=== PATIENT | female | born 1940 | race Caucasian/White ===

== ENCOUNTER 2021-02-08 18:40 | Inpatient (IN) | payer MEDICARE, BC ==
[~2021-02-08] VITALS: Ht 170.2 cm; Wt 81.0 kg
--- NOTE | ~2021-02-08 | OP ---
PATIENT NAME: KANDICE ALBRECHT MEDICAL RECORD: [id number] :40 LOCATION:[id number] ADMISSION DATE:02/08/21 SURGEON: EDGARDO HAN MD DATE OF OPERATION: 02/11/2021 PREOPERATIVE DIAGNOSIS: Lower gastrointestinal bleeding. POSTOPERATIVE DIAGNOSES: 1. Lower gastrointestinal bleeding very likely secondary to diverticular disease. 2. Moderate left-sided diverticulosis. 3. Tortuous colon. 4. 4 sessile polyps ranging in size from 5 mm-1.2cm. PROCEDURE PERFORMED: 1. Total colonoscopy to the cecum. 2. Hot biopsy forceps polypectomies 4. SURGEON: Edgardo Han MD HOSPITAL INSURANCE REPRESENTATIVE: None. BLOOD LOSS: Minimal. ANESTHESIA: IV sedation. COMPLICATIONS: None. The risks, possible complications, and alternatives of the procedure were explained to the patient. She elected to proceed. ENDOSCOPIC COURSE: The patient was conveyed to the endoscopy suite electively on 02/11/2021. IV sedation was induced by the anesthesia staff. The patient was placed in the Solis position. A digital rectal examination was performed. A colonoscope was inserted through the anus. It was easily advanced to the cecum. The prep was adequate. Upon withdrawal, I irrigated and aspirated extensively. A combination of normal imaging and narrow band imaging were utilized. I dragged the folds. The pullback was greater than 18-minute pullback. Four hot biopsy forceps polypectomies were performed. A retroflex view was obtained of the rectum. I then unretroflexed the scope and removed it under direct vision. Plan to see the patient in my office in 2 to 3 weeks to review the results of the polypectomies. TRANSINT:[id number] Voice Confirmation ID: [id number] DOCUMENT ID: [id number] EDGARDO HAN MD CC: VERO REYES [id number] DICTATION DATE: 02/11/21 141 CHEMISTRY TUTOR: 02/11/211942 ADM IN [facility] [place] [address] [place] [address]
[2021-02-08] MEDS ORDERED: ANORO ELLIPTA1 EACH INH (18:51)
[2021-02-08] MEDS ORDERED: ELIQUIS5 MG PO (18:53)
[2021-02-08] MEDS ORDERED: LANTUS INS100 UNITS/ SC (18:53)
[2021-02-08] MEDS ORDERED: K-TAB10 MEQ PO (18:54)
[2021-02-08] MEDS ORDERED: FUROSEMIDE20 MG PO (18:54)
[2021-02-08 19:26] LABS: HEMATOCRIT 23.4 % (36.0-48.0)
[2021-02-08 19:30] LABS: HEMOGLOBIN 6.6 g/dL (12-16)
[2021-02-08 20:33] LABS: EOSINOPHILS 3.7 % (0-7); HEMATOCRIT 23.7 % (36.0-48.0); IMMATURE GRANULOCYTES 0.1 % (0-5); LYMPHOCYTE ABS# 1.74 10x3/uL (1.18-3.74); LYMPHOCYTES 24.9 % (15-50); MCH 21.9 pg (26.0-34.0); MCHC 28.3 g/dL (31.0-37.0); MCV 77.5 fL (80.0-100.0); MEAN PLATELET VOLUME 10.4 fL (7.4-10.4); MONOCYTES 7.3 % (2-11); NEUTROPHIL ABS# 4.39 10x3/uL (1.56-6.13); PLATELET COUNT 216 10x3/uL (130-400); RBC 3.06 10x6/uL (4.00-5.40); RDW 17.2 % (11.5-14.5)
[2021-02-08 20:39] LABS: ANION GAP 12.3 mmol/L (8-16); CALCIUM 8.4 mg/dL (8.5-10.1); CARBON DIOXIDE 29.6 mmol/L (21.0-32.0); CREATININE - SERUM 1.1 mg/dL (0.6-1.3); POTASSIUM - SERUM 3.9 mmol/L (3.5-5.1)
[2021-02-08 20:41] LABS: HEMOGLOBIN 6.7 g/dL (12-16)
[2021-02-08 20:45] LABS: ALBUMIN 2.8 g/dL (3.4-5.0); BILIRUBIN - TOTAL 1.3 mg/dL (0.2-1.3); MAGNESIUM - SERUM 2.3 mg/dL (1.8-2.4); PROTEIN - SERUM 5.7 g/dL (6.4-8.2)
[2021-02-08 22:45] VITALS: BP 138/54; BMI 28.2
[2021-02-08 23:00] VITALS: BP 138/54
[2021-02-08 23:30] VITALS: BP 159/65
[2021-02-09] VITALS (21 sets, daily range): BP systolic 132–182; BP diastolic 38–99
--- NOTE | 2021-02-09 02:25 | NUR ---
IV ALARMING, UPON ENTRANCE INTO PT ROOM, PT HAD ACCIDENTALLY PULLED BOTH IV'S OUT, STATES SHE GOT THEM TANGLED UP. COMPLETE LINEN CHANGE DONE, 2 NEW 20G PIV'S INSERTED X 1 STICK EACH TO LT FA.
[2021-02-09 04:07] LABS: HEMATOCRIT 28.2 % (36.0-48.0)
[2021-02-09 04:10] LABS: HEMOGLOBIN 8.4 g/dL (12-16)
[2021-02-09 04:21] LABS: ALBUMIN 2.7 g/dL (3.4-5.0); ANION GAP 11.7 mmol/L (8-16); BILIRUBIN - TOTAL 1.36 mg/dL (0.2-1.3); CALCIUM 8.3 mg/dL (8.5-10.1); CARBON DIOXIDE 25.9 mmol/L (21.0-32.0); MAGNESIUM - SERUM 2.2 mg/dL (1.8-2.4); PHOSPHOROUS 3.4 mg/dL (2.5-4.9); POTASSIUM - SERUM 3.6 mmol/L (3.5-5.1)
[2021-02-09 05:12] LABS: BASOPHILS 0.8 % (0-2); EOSINOPHILS 3.1 % (0-7); HEMATOCRIT 28.3 % (36.0-48.0); HEMOGLOBIN 8.4 g/dL (12-16); IMMATURE GRANULOCYTES 0.1 % (0-5); LYMPHOCYTE ABS# 1.75 10x3/uL (1.18-3.74); LYMPHOCYTES 23.3 % (15-50); MCH 23.3 pg (26.0-34.0); MCHC 29.7 g/dL (31.0-37.0); MCV 78.6 fL (80.0-100.0); MEAN PLATELET VOLUME 10.5 fL (7.4-10.4); MONOCYTES 6.7 % (2-11); NEUTROPHIL ABS# 4.96 10x3/uL (1.56-6.13); PLATELET COUNT 213 10x3/uL (130-400); RDW 16.8 % (11.5-14.5); WBC 7.5 10x3/uL (4.8-10.8)
--- NOTE | 2021-02-09 07:57 | NUR ---
DAILY ASSESSMENT COMPLETE. PATIENT CONFUSED TO SITUATION AND TIME. DOES NOT REMEMBER BEING SEEN BY DOCTORS OR PLAN OF CARE. REORIENTED TO SITUATION. NO NEEDS. CHRISTINE DRAINING TO GRAVITY. PROTONIX DRIP AND NS INFUSING TO IV SITES TO LEFT UPPER EXTREMITY.
--- NOTE | 2021-02-09 09:46 | NUR ---
PATIENT ASSISTED TO POSITION OF COMFORT, REPOSITIONED TO SUPINE FROM RIGHT SIDE LYING. CALL LIGHT IN REACH, RAILS UP FOR SAFETY, SAFETY CHECKS PERFORMED. BED ALARM ON, TUBING HIDDEN/COVERED. CHRISTINE EMPTIED OF 350ML YELLOW URINE. REORIENTED TO PERSON TIME PLACE SITUATION, CARE PLAN EXPLAINED. TV TURNED OFF AND BLANKETS APPLIED PER REQUEST OF PATIENT. NAD. VS STABLE.
--- NOTE | 2021-02-09 09:58 | NUR ---
SON GIVEN STATUS UPDATE ON PATIENT AND NOTIFIED OF VISITATION POLICY.
--- NOTE | 2021-02-09 10:55 | NUR ---
PATIENT ROUNDING AND REASSESSMENT PERFORMED NO CHANGES. . PROTONIX DRIP AND NS IVF INFUSING TO PERIPHERAL IV. HOSPITALIST AT BEDSIDE.
--- NOTE | 2021-02-09 11:50 | NUR ---
SON AT BEDSIDE TO VISIT PATIENT. PROVIDED INSURANCE CARDS AND ID, COPIES MADE AND PLACED IN CHART.
--- NOTE | 2021-02-09 12:23 | NUR ---
PATIENT BROUGHT LUNCH TRAY AT 1214, FINISHED 1222. ATE 75% OF TRAY, 240ML LIQUID PO INTAKE.
--- NOTE | 2021-02-09 13:43 | NUR ---
NURSING ROUND PERFORMED. NAD. AWAKE, ALERT, ORIENTED TO PLACE AND SITUATION. DENIES NEEDS. MONITORING IN LINE OF SIGHT.
--- NOTE | 2021-02-09 15:04 | NUR ---
ROUND PERFORMED WITH DR HAN, OPTIONS DISCUSSED WITH PATIENT, PLAN OF CARE EXPLAINED. VERBAL ORDER TO CONTINUE CLEAR LIQUID DIET, AND TO PLAN FOR BOWEL PREP AND COLONOSCOPY WEDNESDAY. DR HAN STATES THAT PATIENT IS CLEARED TO GO TO THE MED SURG FLOOR FROM HIS STAND POINT.
--- NOTE | 2021-02-09 15:11 | NUR ---
DR VERO REYES CALLED AND NOTIFIED OF DR HAN PLAN OF CARE, TELEPHONE ORDER TO MOVE TO MED SURG RECEIVED. MANAGER BUSINESS PLANNING JCARLOS IRBY NOTIFIED.
--- NOTE | 2021-02-09 15:47 | NUR ---
SON, SAM ROCHA, NOTIFIED OF PATIENT STATUS, PLAN OF CARE, AND ORDERS TO MOVE TO MED SURG. VERBALIZED THANKS AND UNDERSTANDING.
--- NOTE | 2021-02-09 16:05 | NUR ---
ATTEMPTED TO CALL REPORT AT THIS TIME, REFUSED, STATES THAT ROOM IS NOT CLEAN.
--- NOTE | 2021-02-09 16:37 | NUR ---
REPORT CALLED TO MAHAMED LUTHER. ACCEPTED TO ROOM 2106.
--- NOTE | 2021-02-09 17:02 | NUR ---
PATIENT TRANSFERRED TO 2106, ALL BELONGINGS ACCOUNTED FOR BY PATIENT AND SENT WITH HER TO MED SURG UNIT. PATIENT STABLE, NO COMPLAINTS OR PAIN. FAMILY NOTIFIED OF TRANSFER.
--- NOTE | 2021-02-09 17:21 | NUR ---
ARRIVES TO FLOOR FROM ICU, IV INFUSING PER LFA, CONFUSED TO DATE, TIME , DRINKING MAG CITRATE,CONT TO MONITOR, BED ALARM IN PLACE
--- NOTE | 2021-02-09 21:34 | NUR ---
INITIAL ROUNDS COMPLETED AT 1915 HRS. ASSISTED PT TO BSC. LARGE AMOUNT OF BROWN DIARRHEA NOTED. ASSISTED BACK TO BED. PT UP TO BSC AT 1999 HRS. LARGE AMOUNT OF BROWN DIARRHEA NOTED. ASSISTED BACK TO BED. GAIT SLIGHTLY UNSTEADY. ASSESSMENT COMPLETED AT 2004 HRS. VSS. SR PER CMHR 98. PT ALERT, ORIENTED TO PERSON ONLY. SCAB NOTED TO TOP OF HEAD. LUNGS ESSENTIALLY CTA. HEART TONES S1 S2. ABD SOFT WTIH ATIVE BS NOTED. PALPABLE PERIPHERAL PULSES. IV X2 TO LFA WRAPPED WITH KERLIX. NS AT 75CC/HR INFUSING WITHOUT DIFFICULTY. SCD'S IN USE. REMOVED AND SKIN INSPECTED. NO BREAKDOWN NOTED. CHRISTINE DRAINING YELLOW URINE. ASSISTED PT TO BSC AT 2044 HRS. MODERTE AMOUNT OF BROWN DIARRHEA NOTED. ASSISTED BACK TO BED. PT CURRENTLY RESTING WITH EYES CLOSED. RESP EVEN AND REGULAR. SRUP X2, CALL LIGHT WITHIN REACH AND BED ALARM ON.
--- NOTE | 2021-02-09 23:52 | NUR ---
REPORT GIVEN TO ARNOL ASENCIO. PT TO BE TRANSFERRED TO RM 2228.
--- NOTE | 2021-02-10 01:05 | NUR ---
I have reviewed this patient and I concur with the Shift Assessment completed by the Licensed Practical Nurse today this shift.
[2021-02-10 07:52] LABS: ALBUMIN 2.7 g/dL (3.4-5.0); ANION GAP 8.5 mmol/L (8-16); BILIRUBIN - TOTAL 0.94 mg/dL (0.2-1.3); CALCIUM 7.8 mg/dL (8.5-10.1); CARBON DIOXIDE 27.3 mmol/L (21.0-32.0); CREATININE - SERUM 0.9 mg/dL (0.6-1.3); MAGNESIUM - SERUM 2.4 mg/dL (1.8-2.4); POTASSIUM - SERUM 3.8 mmol/L (3.5-5.1); PROTEIN - SERUM 5.6 g/dL (6.4-8.2)
[2021-02-10 08:04] VITALS: BP 166/64
[2021-02-10 08:09] LABS: BASOPHILS 0.6 % (0-2); EOSINOPHILS 3.2 % (0-7); HEMATOCRIT 29.9 % (36.0-48.0); HEMOGLOBIN 8.7 g/dL (12-16); IMMATURE GRANULOCYTES 0.3 % (0-5); LYMPHOCYTE ABS# 1.29 10x3/uL (1.18-3.74); MCH 23.2 pg (26.0-34.0); MCHC 29.1 g/dL (31.0-37.0); MCV 79.7 fL (80.0-100.0); MEAN PLATELET VOLUME 10.6 fL (7.4-10.4); NEUTROPHIL ABS# 5.16 10x3/uL (1.56-6.13); NEUTROPHILS 71.9 % (40-80); PLATELET COUNT 227 10x3/uL (130-400); RBC 3.75 10x6/uL (4.00-5.40); RDW 17.1 % (11.5-14.5); WBC 7.2 10x3/uL (4.8-10.8)
--- NOTE | 2021-02-10 10:07 | NUR ---
PATIENT RESTING QUIETLY AT THIS TIME, NO DISTRESS NOTED. IV SITE DRY AND INTACT WITH NO S/S OF INFILTRATION. MAINTENANCE FLUIDS RUNNING. PATIENT AROUSES EASILY WITH VERBAL STIMULI. RESPIRATIONS EVEN AND UNLABORED. CHRISTINE CATH IN PLACE DRAINING CLEAR, YELLOW URINE. CALL VARGAS IN REACH, SIDE RAILS UP X 2, BED IN LOW POSITION.
[2021-02-10] MEDS ORDERED: K-DUR20 MEQ PO (10:41)
[2021-02-10] MEDS ORDERED: METOPROLOL TART50 MG PO (10:42)
[2021-02-10] MEDS ORDERED: COZAAR25 MG PO (10:42)
[2021-02-10] MEDS ORDERED: LIPITOR40 MG PO (10:43)
[2021-02-10] MEDS ORDERED: DITROPAN XL 1010 MG PO (10:43)
[2021-02-10 13:59] VITALS: Ht 170.2 cm; Wt 81.0 kg
[2021-02-10 15:25] VITALS: BP 176/64
[2021-02-10 18:35] VITALS: BP 197/69
[2021-02-10 20:00] VITALS: BP 173/67
--- NOTE | 2021-02-10 20:30 | NUR ---
PT AWARE OF UPCOMING COLONOSCOPY. ORIENTED TO SELF, BUT STATSE SHE'S IN A BASEMENT AWAITING SURGERY. REORIENTED TO PLACE, TIME, SITUATION. VERBAL CONSENT RECEIVED FROM DAUGHTER, GARRETT. INFORMED PT ON BLADDER TRAINING. TUBING KINKED. PT VERBALIZED UNDERSTANDING OF USING CALL LIGHT WHEN SHE FEELS FULL, CTM.
[2021-02-11] VITALS: BP 139/82
--- NOTE | 2021-02-11 02:15 | NUR ---
PT REPORTS FEELING BLADDER FULLNESS. 10ML ASPIRATED FROM Chet RODRIGUEZ W/O COMPLAINTS. CTM.
[2021-02-11 04:00] VITALS: BP 161/70
[2021-02-11 05:28] LABS: BASOPHILS 0.7 % (0-2); EOSINOPHILS 3.8 % (0-7); HEMATOCRIT 30.4 % (36.0-48.0); HEMOGLOBIN 8.8 g/dL (12-16); IMMATURE GRANULOCYTES 0.1 % (0-5); LYMPHOCYTE ABS# 1.09 10x3/uL (1.18-3.74); LYMPHOCYTES 15.8 % (15-50); MCH 23.1 pg (26.0-34.0); MCHC 28.9 g/dL (31.0-37.0); MCV 79.8 fL (80.0-100.0); MEAN PLATELET VOLUME 10.8 fL (7.4-10.4); MONOCYTES 6.7 % (2-11); NEUTROPHIL ABS# 5.02 10x3/uL (1.56-6.13); NEUTROPHILS 72.9 % (40-80); PLATELET COUNT 219 10x3/uL (130-400); RBC 3.81 10x6/uL (4.00-5.40); RDW 17.1 % (11.5-14.5); WBC 6.9 10x3/uL (4.8-10.8)
--- NOTE | 2021-02-11 05:34 | NUR ---
I have reviewed this patient and I concur with the Shift Assessment completed by the Licensed Practical Nurse today this shift.
[2021-02-11 05:45] LABS: ALBUMIN 2.5 g/dL (3.4-5.0); ALKALINE PHOSPHATASE 61 U/L (30-120); BILIRUBIN - TOTAL 0.71 mg/dL (0.2-1.3); CALCIUM 7.5 mg/dL (8.5-10.1); CARBON DIOXIDE 24.6 mmol/L (21.0-32.0); CHLORIDE - SERUM 110 mmol/L (98-107); CREATININE - SERUM 0.7 mg/dL (0.6-1.3); GLUCOSE 152 mg/dL (74-106); MAGNESIUM - SERUM 2.4 mg/dL (1.8-2.4); PHOSPHOROUS 2.6 mg/dL (2.5-4.9); POTASSIUM - SERUM 3.4 mmol/L (3.5-5.1); SODIUM 142 mmol/L (136-145); eGFR NON AFRICAN AMERICAN 85 mL/min (90-120)
[2021-02-11 05:56] LABS: ALT (SGPT) 12 U/L (10-68); CALC OSMOLALITY 283 mosm/kg (275-300); UREA NITROGEN 6 mg/dL (7-18)
--- NOTE | 2021-02-11 06:00 | NUR ---
PT REPORTS VOIDING IN TOILET, CTM.
[2021-02-11 08:50] VITALS: BP 144/65
--- NOTE | 2021-02-11 11:43 | NUR ---
PT LAYING IN BED RESTING, NO SIGNS OF DISTRESS, PT IS SLIGHTLY CONFUSED AND NEEDS FREQUENT REMINDERS OF WHEN AND WHERE SHE IS, PT DOES FORGET TO USE CALL LIGHT WHEN GETTING UP
[2021-02-11 13:10] VITALS: BP 157/80
--- NOTE | 2021-02-11 14:16 | NUR ---
PACU CALLED TO REPORT THAT FINDINGS FOR PT WERE SEVERE DIVERTICULITIS AND 4 POLYPS THAT WERE REMOVED, PT IS BACK TO BASELINE FOR MENTAL STATUS, NO O2 NEEDED, PT TO GO TO CT BEFORE COMING BACK TO FLOOR
[2021-02-11 17:09] VITALS: BP 169/69
[2021-02-11 20:00] VITALS: BP 139/73
[2021-02-12] VITALS: BP 120/69
--- NOTE | 2021-02-12 02:17 | NUR ---
I have reviewed this patient and I concur with the Shift Assessment completed by the Licensed Practical Nurse today this shift.
[2021-02-12 04:00] VITALS: BP 157/70
[2021-02-12 05:05] LABS: EOSINOPHILS 3.8 % (0-7); HEMOGLOBIN 8.7 g/dL (12-16); IMMATURE GRANULOCYTES 0.2 % (0-5); LYMPHOCYTE ABS# 0.96 10x3/uL (1.18-3.74); LYMPHOCYTES 16.4 % (15-50); MCH 23.1 pg (26.0-34.0); MCV 79.8 fL (80.0-100.0); MEAN PLATELET VOLUME 10.2 fL (7.4-10.4); MONOCYTES 6.3 % (2-11); NEUTROPHIL ABS# 4.23 10x3/uL (1.56-6.13); NEUTROPHILS 72.3 % (40-80); PLATELET COUNT 207 10x3/uL (130-400); RBC 3.76 10x6/uL (4.00-5.40); RDW 17.2 % (11.5-14.5); WBC 5.9 10x3/uL (4.8-10.8)
[2021-02-12 05:13] LABS: ALBUMIN 2.6 g/dL (3.4-5.0); ANION GAP 11.3 mmol/L (8-16); BILIRUBIN - TOTAL 0.79 mg/dL (0.2-1.3); CALCIUM 7.6 mg/dL (8.5-10.1); CARBON DIOXIDE 24.4 mmol/L (21.0-32.0); CREATININE - SERUM 0.8 mg/dL (0.6-1.3); MAGNESIUM - SERUM 2.2 mg/dL (1.8-2.4); PHOSPHOROUS 2.3 mg/dL (2.5-4.9); POTASSIUM - SERUM 3.7 mmol/L (3.5-5.1); PROTEIN - SERUM 6.1 g/dL (6.4-8.2)
[2021-02-12 08:56] VITALS: BP 184/69
[2021-02-12 12:59] VITALS: BP 140/83
--- NOTE | 2021-02-12 14:07 | NUR ---
Nutrition follow-up: Pt diagnosed with severe divertiuclar disease post-colonoscopy Diet remains clear liquids Labs reviewed Wt: 178# Pt not meeting nutritional needs at this time Recommend starting ProcalAmine PPN @ 75 ml/hr if diet unable to advance past clears within 24 hours RDN follow-up: 02/14/21
--- NOTE | 2021-02-12 14:19 | MORECARE ---
CASE MANAGEMENT DISCHARGE SUMMARY PATIENT: KANDICE ALBRECHT UNIT: [id number] ADM DATE: 02/08/21 AGE: 80 : 40 SEX: F ROOM/BED: D.2228 AUTHOR: INDER,DOC PHYSICIAN: REFERRING PHYSICIAN: VERO REYES MD DATE OF SERVICE: 02/12/21 Case Management Discharge Planning Summary COMMENTS ENTERED DATE: 02/12/21 14:05 CT COMMENT TYPE: Discharge Planning REVIEWER: Theresa Mustafa CM SPOKE TO PATIENT'S DAUGHTER AND SON IN [place] TODAY VIA PHONE. THEY STATE IT IS NOT SAFE FOR HER TO BE AT HOME AND NEEDS REHAB. THEY WOULD LIKE [facility] IN [place] FOR REHAB. PHONE NUMBER [phone] FAX [phone]. CONTACTED FACILITY AND FAXING THEM A FACE SHEET AND H&P, I WILL FAX THERAPY NOTES WHEN AVAILABLE ON CHART. PATIENT'S DAUGHTER GARRETT ROCHA STATES SHE IS HER POA AND HER PHONE NUMBER IS [phone]. CM TO FOLLOW AND ASSIST NEEDED. DCP REVIEW SUMMARY ANTICIPATED D/C DATE: EXPECTED LOS : CASE STATUS: DCP Initiated INITIAL REVIEW: 02/08/2021 INITIAL REVIEWER: Theresa Mustafa FINAL DISCHARGE DISPOSITION: : FINAL REVIEWER: FINAL REVIEW DATE: DCP Focus Questions & Answers QUESTION: ANSWER : PATIENT: KANDICE ALBRECHT ENCOUNTER: [id number] MEDICAL RECORD#: [id number] ADMISSION DATE: 02/08/2021 DISCHARGE DATE: ATTENDING MD: VERO DAMON : AGE: 80 MARITAL STATUS: D DC PLAN ID: [id number] FACILITY: [facility] PRINTED ON: 02/12/21 14:19 CT All edits/amendments must be made on the electronic document DICTATION DATE: 02/12/211418 ROCK CRUSHER: WALESKA 02/12/211418 RPT#: [id number] DC DATE: STATUS: ADM IN [facility] [address] [place] [address] END OF REPORT
--- NOTE | 2021-02-12 17:36 | NUR ---
OT NOTE: PT COMPLETED BED MOB TASKS WITH SPV. PT COMPLETED SIMPE HYGIENE TASKS WITH SETUP. [phone] THANK YOU,DORA POST
[2021-02-12 18:03] VITALS: BP 180/81
[2021-02-12 20:00] VITALS: BP 141/50
--- NOTE | 2021-02-12 22:56 | NUR ---
PT SITTING UP IN THE BED. NO COMPLAINTS OF PAIN NOR DISTRESS AT THIS TIME. PT STATES SHE IS FEELING GOOD. ABLE TO MAKE WANTS AND NEEDS KNOWN. ALERT AND ORIENTED. BED IN LOWEST POSITION WITH CALL LIGHT IN REACH.
[2021-02-13 04:00] VITALS: BP 110/59
[2021-02-13 06:24] LABS: BASOPHILS 0.9 % (0-2); EOSINOPHILS 3.4 % (0-7); HEMATOCRIT 32.2 % (36.0-48.0); HEMOGLOBIN 9.2 g/dL (12-16); IMMATURE GRANULOCYTES 0.2 % (0-5); LYMPHOCYTE ABS# 1.29 10x3/uL (1.18-3.74); MCH 23.1 pg (26.0-34.0); MCHC 28.6 g/dL (31.0-37.0); MCV 80.9 fL (80.0-100.0); MEAN PLATELET VOLUME 10.9 fL (7.4-10.4); NEUTROPHIL ABS# 4.55 10x3/uL (1.56-6.13); NEUTROPHILS 70.5 % (40-80); PLATELET COUNT 227 10x3/uL (130-400); RBC 3.98 10x6/uL (4.00-5.40); RDW 17.6 % (11.5-14.5); WBC 6.5 10x3/uL (4.8-10.8)
[2021-02-13 06:36] LABS: ALBUMIN 2.8 g/dL (3.4-5.0); ANION GAP 12.3 mmol/L (8-16); BILIRUBIN - TOTAL 0.53 mg/dL (0.2-1.3); CALCIUM 7.9 mg/dL (8.5-10.1); CARBON DIOXIDE 25.3 mmol/L (21.0-32.0); CREATININE - SERUM 0.8 mg/dL (0.6-1.3); MAGNESIUM - SERUM 2.3 mg/dL (1.8-2.4); PHOSPHOROUS 2.6 mg/dL (2.5-4.9); POTASSIUM - SERUM 3.6 mmol/L (3.5-5.1); PROTEIN - SERUM 6.5 g/dL (6.4-8.2)
--- NOTE | 2021-02-13 07:43 | NUR ---
PT IS RESTING IN BED WITH EYES OPEN. RESPIRATIONS ARE EVEN AND UNLABORED. PT IS EASILY AROUSED WITH VERBAL STIMULATION. PT DENIES PRESENCE OF PAIN/N/V AT THIS TIME. PT REPORTS A BM "LAST NIGHT" AND DENIES PRESENCE OF BLOOD IN STOOL. PT STATES "I LOOKED REAL CLOSE TO MAKE SURE". PIV X 2 TO LEFT FA AND (1) INFUSING WITHOUT DIFFICULTY/COMPROMISE. PIV (2) IS SL AND FLUSHES WITHOUT DIFFICULTY/COMPROMISE. BS ACTIVE X 4. PT IS AAO X 4. FALL PRECAUTIONS IN PLACE. INCENTIVE SPIROMETER AT BEDSIDE AND ENCOURAGED. PT DENIES PRESENCE OF DYSPNEA/SOB AT THIS TIME. PT DENIES PRESENCE OF NUMBNESS/TINGLING TO BUE AND BLE AT THIS TIME. BED IS IN THE LOWEST POSITION. CALL LIGHT AND BEDSIDE TABLE ARE WITHIN REACH. SIDE RAILS X 2. PT DENIES FURTHER NEEDS. WILL CONT TO MONITOR.
[2021-02-13 09:11] VITALS: BP 188/71
--- NOTE | 2021-02-13 10:06 | NUR ---
PIV TO LEFT FA WITH REDNESS AND TENDER. PIV REMOVED WITH CATHETER TIP INTACT. DRESSING APPLIED. PIV TO LEFT FA (2) INFUSINGER PER ORDER WITHOUT DIFFICULTY/COMPROMISE. FALL PERCAUTIOSN IN PLACE. BED IS N THE LOWEST POSITION. CALL LIGHT AND BEDSIDE TABLE ARE WITHIN REACH. SIDE RAILS X 2. INCENTIVE SPIROMETER AT BEDSIDE AND ENCOURAGED. PT DENIES FURTHER NEEDS. WILL CONT TO MONITOR.M
[2021-02-13 12:58] VITALS: BP 170/80
--- NOTE | 2021-02-13 14:30 | NUR ---
TELEPHONE ORDERS RECD FROM NIYAH BAHENA APRN TO ADVANCE DIET TO REGULAR DIET. WILL PLACE ORDER.
--- NOTE | 2021-02-13 14:31 | NUR ---
WALKED 250 FEET USED WALKER AND GT BELT MIN ASSIT
[2021-02-13] MEDS ORDERED: PROTONIX40 MG PO (16:15)
[2021-02-13 16:56] VITALS: BP 180/72
--- NOTE | 2021-02-13 18:14 | NUR ---
OT NOTE: PT COMPLETED SUPINE TO SIT WITH CGA. PT COMPLETED ADL MOB WITH CGA TO TOILET. PT COMPLETED HYGIENE TASKS WITH MIN A. PT COMPLETED SIT TO STAND WITH CGA. PT COMPLETED HAND HYGIENE WITH SETUP. PT COMPLETED HAIR GROOMING WITH SETUP. [phone] PARI LOPEZ COTA
--- NOTE | 2021-02-13 20:00 | NUR ---
CALLED TO ROOM PT IS CONFUSED STATES WHY HAVE THEY MOVED ME TO ANOTHER HOSPITAL, REASURES THIS WAS SAME PLACE, CALLED DAUGHTER FOR PT TO SPEAK WITH MUCH CALMER AFTER SPEAKING WITH DAUGHTER, SEE SHIFT ASSESSMENT, CALL LIGHT IN REACH, FALL PRECAUTIONS IN PLACE
[2021-02-13 21:36] VITALS: BP 144/52
[2021-02-14 04:00] VITALS: BP 173/58
[2021-02-14 06:57] LABS: BASOPHILS 0.9 % (0-2); EOSINOPHILS 5.2 % (0-7); HEMOGLOBIN 8.9 g/dL (12-16); IMMATURE GRANULOCYTES 0.2 % (0-5); LYMPHOCYTE ABS# 1.29 10x3/uL (1.18-3.74); LYMPHOCYTES 23.9 % (15-50); MCH 23.1 pg (26.0-34.0); MCHC 28.7 g/dL (31.0-37.0); MCV 80.5 fL (80.0-100.0); MEAN PLATELET VOLUME 10.9 fL (7.4-10.4); MONOCYTES 6.9 % (2-11); NEUTROPHILS 62.9 % (40-80); PLATELET COUNT 219 10x3/uL (130-400); RBC 3.85 10x6/uL (4.00-5.40); RDW 17.6 % (11.5-14.5); WBC 5.4 10x3/uL (4.8-10.8)
[2021-02-14 06:59] LABS: ALBUMIN 2.7 g/dL (3.4-5.0); ANION GAP 10.4 mmol/L (8-16); BILIRUBIN - TOTAL 0.61 mg/dL (0.2-1.3); CALCIUM 7.9 mg/dL (8.5-10.1); CREATININE - SERUM 0.8 mg/dL (0.6-1.3); POTASSIUM - SERUM 3.4 mmol/L (3.5-5.1); PROTEIN - SERUM 6.2 g/dL (6.4-8.2)
[2021-02-14 08:38] VITALS: BP 165/68
--- NOTE | 2021-02-14 08:45 | NUR ---
PATIENT IN BED WITH IV INTACT. NO COMPLAINTS OR SIGNS OF DISTRESS. ASSISTED TO BR AND BACK TO BED. CALL LIGHT WITHIN REACH.
[2021-02-14 12:34] VITALS: BP 129/57
--- NOTE | 2021-02-14 13:30 | NUR ---
PATIENT IV REMOVED DUE TO LEAKING WITH CATH TIP INTACT. NEW IV NOT NEEDED. PATIENT BEING DC'D. CALL LIGHT WITHIN REACH.
--- NOTE | 2021-02-14 15:03 | NUR ---
PATIENT WALKED 250 FEET WITH CGA.
--- NOTE | 2021-02-14 15:30 | NUR ---
PATIENT SITTING ON BED WAITING FOR DC. CALL LIGHT WITHIN REACH.
--- NOTE | 2021-02-14 15:45 | NUR ---
OT NOTE: PT COMPLETED TOILETING TASKS WITH SBA-CGA. PT COMPLETED CHRISTIN SOCKS WITH SETUP. PT COMPLETED ADL MOB WITH SUPERVISOR IN CIRCUIT TESTING-SBA. PT DONNED GOWN WITH SETUP. PT COMPLETED HAND HYGIENE AT SINK WITH SBA. [phone] THANK YOU,DORA POST
--- NOTE | 2021-02-14 16:00 | NUR ---
TRIED TO CALL PATIENTS DAUGHTER GARRETT TO LET HER KNOW PATIENT IS BEING DC'D TO [facility] AND PATIENT WANTED TO SPEAK TO HER. NO ANSWER. LEFT VM.
--- NOTE | 2021-02-14 17:00 | NUR ---
[employer] CALLED BACK AND STATED THAT PATIENT WAS GOING TO HAVE TO PAY FOR RIDE WITH [employer]. PADMINI ZARATE SPOKE WITH THEM. STATED THAT SELINA WAS PAYING FOR RIDE. STATED THAT [employer] WOULD BE HERE TO GET HER. PATIENT WAITING AT THIS TIME.
--- NOTE | 2021-02-14 17:13 | NUR ---
Nutrition Follow-up: Per nurses notes, pt denies abd pain or N/V. Patient reported BM 02/12/21. Plans to discharge to SNF soon. Diet: Regular (diet advanced yesterday) PO intake: none recorded recently Last BM: 02/11/21 x 5 Wt: 178.5# (02/10/21); Admit Wt: 179.6# (02/08/21) Meds noted: SSI, NS@75 Labs noted: K 3.4(L), Glu 141(H), POC Glu 150(H), alb 2.7(L) Recommend continue Regular PO diet as tolerated. If PO intake trends <65% average recommend adding Ensure with meals. RD will follow-up 02/17/21.
[2021-02-14 17:30] VITALS: BP 156/63
[2021-02-14 19:51] VITALS: BP 154/79
--- NOTE | 2021-02-14 23:36 | NUR ---
[facility] HERE TO TRANSPORT PT TO SNF, SON MR. ROCHA NOTIFIED, PERSONAL BELONGINGS SENT WITH PT, DISCHARGE PAPERS SENT
--- NOTE | 2021-02-14 23:48 | MORECARE ---
CASE MANAGEMENT DISCHARGE SUMMARY PATIENT: KANDICE ALBRECHT UNIT: [id number] ADM DATE: 02/08/21 AGE: 80 : 40 SEX: F ROOM/BED: D.2228 AUTHOR: INDER,DOC PHYSICIAN: REFERRING PHYSICIAN: VERO REYES MD DATE OF SERVICE: 02/14/21 Case Management Discharge Planning Summary COMMENTS ENTERED DATE: 02/12/21 14:05 CT COMMENT TYPE: Discharge Planning REVIEWER: Theresa Mustafa CM SPOKE TO PATIENT'S DAUGHTER AND SON IN [place] TODAY VIA PHONE. THEY STATE IT IS NOT SAFE FOR HER TO BE AT HOME AND NEEDS REHAB. THEY WOULD LIKE [facility] IN [place] FOR REHAB. PHONE NUMBER [phone] FAX [phone]. CONTACTED FACILITY AND FAXING THEM A FACE SHEET AND H&P, I WILL FAX THERAPY NOTES WHEN AVAILABLE ON CHART. PATIENT'S DAUGHTER GARRETT ROCHA STATES SHE IS HER POA AND HER PHONE NUMBER IS [phone]. CM TO FOLLOW AND ASSIST NEEDED. DCP REVIEW SUMMARY ANTICIPATED D/C DATE: EXPECTED LOS : CASE STATUS: DCP Initiated INITIAL REVIEW: 02/08/2021 INITIAL REVIEWER: Theresa Mustafa FINAL DISCHARGE DISPOSITION: : FINAL REVIEWER: FINAL REVIEW DATE: DCP Focus Questions & Answers QUESTION: ANSWER : PATIENT: KANDICE ALBRECHT ENCOUNTER: [id number] MEDICAL RECORD#: [id number] ADMISSION DATE: 02/08/2021 DISCHARGE DATE: 02/14/2021 ATTENDING MD: VERO DAMON : AGE: 80 MARITAL STATUS: D DC PLAN ID: [id number] FACILITY: [facility] PRINTED ON: 02/14/21 23:47 CT All edits/amendments must be made on the electronic document DICTATION DATE: 02/14/212346 CORK PAINTER AND GRADER: WALESKA 02/14/212346 RPT#: [id number] DC DATE:02/14/21 STATUS: DIS IN [facility] [address] [place] [address] END OF REPORT
[2021-02-15 14:09] LABS: ALP - ISO (ALP) 58 IU/L (39-117); ALP - ISO (BONE) FRACTION 44 % (14-68); ALP - ISO (LIVER) FRACTION 56 % (18-85); ALP - ISO(INTESTINAL) FRACTION 0 % (0-18)
--- NOTE | 2021-02-16 13:23 | MORECARE ---
CASE MANAGEMENT DISCHARGE SUMMARY PATIENT: KANDICE ALBRECHT UNIT: [id number] ADM DATE: 02/08/21 AGE: 80 : 40 SEX: F ROOM/BED: D.2228 AUTHOR: INDER,DOC PHYSICIAN: REFERRING PHYSICIAN: VERO REYES MD DATE OF SERVICE: 02/16/21 Case Management Discharge Planning Summary COMMENTS ENTERED DATE: 02/12/21 14:05 CT COMMENT TYPE: Discharge Planning REVIEWER: Theresa Mustafa CM SPOKE TO PATIENT'S DAUGHTER AND SON IN [place] TODAY VIA PHONE. THEY STATE IT IS NOT SAFE FOR HER TO BE AT HOME AND NEEDS REHAB. THEY WOULD LIKE [facility] IN [place] FOR REHAB. PHONE NUMBER [phone] FAX [phone]. CONTACTED FACILITY AND FAXING THEM A FACE SHEET AND H&P, I WILL FAX THERAPY NOTES WHEN AVAILABLE ON CHART. PATIENT'S DAUGHTER GARRETT ROCHA STATES SHE IS HER POA AND HER PHONE NUMBER IS [phone]. CM TO FOLLOW AND ASSIST NEEDED. DCP REVIEW SUMMARY ANTICIPATED D/C DATE: EXPECTED LOS : CASE STATUS: DCP Initiated INITIAL REVIEW: 02/08/2021 INITIAL REVIEWER: Theresa Mustafa FINAL DISCHARGE DISPOSITION: : FINAL REVIEWER: FINAL REVIEW DATE: DCP Focus Questions & Answers QUESTION: ANSWER : PATIENT: KANDICE ALBRECHT ENCOUNTER: [id number] MEDICAL RECORD#: [id number] ADMISSION DATE: 02/08/2021 DISCHARGE DATE: 02/14/2021 ATTENDING MD: VERO DAMON : AGE: 80 MARITAL STATUS: D DC PLAN ID: [id number] FACILITY: [facility] PRINTED ON: 02/16/21 13:23 CT All edits/amendments must be made on the electronic document DICTATION DATE: 02/16/21 1323 HORIZONTAL DRILL OPERATOR: WALESKA 02/16/21 1323 RPT#: [id number] DC DATE:02/14/21 STATUS: DIS IN [facility] [address] [place] [address] END OF REPORT
== END 2021-02-14 23:38 | DRG 378 ==
LOC: D.ER 18:40 → D.MS 21:04 → D.ICU 21:04 → D.M2 02-09 16:49 → D.MS 02-10 00:14
PROVIDERS: Family Medicine; Surgery; ADMIT Emergency Medicine; ATTEND Emergency Medicine
PROC: 0DBE8ZZ Excision of Large Intestine, Via Natural or Artificial Opening Endoscopic (ICD-10-PCS; principal; 2021-02-11 13:11)
DX: K57.31 Diverticulosis of large intestine without perforation or abscess with bleeding (principal); D62 Acute posthemorrhagic anemia; Z79.01 Long term (current) use of anticoagulants; I48.91 Unspecified atrial fibrillation; R53.83 Other fatigue; R41.82 Altered mental status, unspecified; E11.9 Type 2 diabetes mellitus without complications; K63.5 Polyp of colon